=== PATIENT | female | born 1965 | race Caucasian/White ===

== ENCOUNTER 2023-09-09 13:02 | Emergency (ER) | payer OTHER, SELFPAY ==
[2023-09-09 13:21] VITALS: BP 141/92; PULSE 135; RESP 18; TEMP 38.1; O2SAT 94; BMI 40.6
--- NOTE | 2023-09-09 13:21 | ED_ITS ---
HPI - Nausea/Vomiting/Diarrhea General Chief complaint: Nausea/Vomiting/Diarrhea Stated complaint: vomiting sob back pain headache Time Seen by Provider: 09/09/23 22:32 Source: patient Mode of arrival: ambulatory Limitations: no limitations History of Present Illness HPI Narrative: Patient otherwise healthy been Having nausea vomiting and diarrhea since 03:00 today. Patient had prior family get together yesterday night woke up and sleep with nausea vomiting and diarrhea since then not able to eat or drink any fluid responded to Zofran given triage able to drink some fluids last bowel movement was at noon time no recent antibiotic take no other family members sick no fever or chills Related Data Previous Rx's Medication Instructions Recorded ondansetron 4 mg disintegrating 4 mg PO Q6-8H PRN nausea and 09/10/23 tablet vomiting #10 tabs Allergies Allergy/AdvReac Type Severity Reaction Status Date / Time codeine Allergy Hives Verified 09/09/23 13:24 Penicillins Allergy Hives Verified 09/09/23 13:24 Sulfa (Sulfonamide Allergy Hives Verified 09/09/23 13:24 Antibiotics) Review of Systems 2 Review of Systems: Yes all other systems are reviewed and are negative [facility] Social History Social History Smoked in Last 30 Days: No Use of substances other than those prescribed or required for medical reasons: No Advance Directives: No Advance Directives Information Provided: No Physical Exam 2 Vital Signs: Vital Signs: Last Vital Signs Temp 97.8 F 09/10/23 01:30 Pulse 96 09/10/23 01:30 Resp 16 09/10/23 01:30 BP 137/74 09/10/23 01:30 Pulse Ox 97 09/10/23 01:30 O2 Del Method Room Air 09/10/23 01:30 BMI result Body Mass Index 40.6 Appearance: Alert. Oriented X3. No acute distress. Eyes: No pallor or icterus ENT: Pharynx normal. Oral Mucosa moist Neck: Normal inspection. Neck supple. CVS: Normal heart rate and rhythm. Pulses normal. Respiratory: No respiratory distress. Equal air entry bilateral, no wheezing/rales/rhonchi Abdomen: Soft, mild diffuse tenderness no rebound tenderness guarding Bowel sounds are present, no mass palpable, no CVA tenderness Skin: Skin warm and dry. Normal skin color. Normal skin turgor. Extremities: No lower extremity edema. No calf tenderness Neuro: Oriented X 3. No motor deficit. No sensory deficit.No cerebellar signs , cranial nerves II-XII intact Course Course Course Narrative: RME:?58 yo female hx diverticulitis here for eval of vomiting, diarrhea, and bilateral flank pain since 0300 this morning. no sick contacts. no otc meds prior to arrival. denies dysuria, hematuria, hematemesis. labs, serology ordered. Full HPI, ROS and PE to be performed by the primary ED provider. Medications Administered Discontinued Medications Generic Name Dose Route Start Last Admin Trade Name Freq PRN Reason Stop Dose Admin Acetaminophen 650 mg 09/09/23 13:28 09/09/23 20:22 Acetaminophen 325 Mg Tablet PO 09/09/23 13:29 650 mg ONCE ONE Administration Sodium Chloride 1,000 mls @ 999 mls/hr 09/09/23 22:52 09/10/23 00:07 Ns IV 09/09/23 23:52 Infused .Q1H1M ONE Infusion Ondansetron HCl 4 mg 09/09/23 13:28 09/09/23 20:23 Ondansetron Odt 4 Mg Tab.Rapdis TRANSLINGU 09/09/23 13:29 4 mg ONCE ONE Administration Ondansetron HCl 4 mg 09/09/23 22:52 09/09/23 23:08 Ondansetron Hcl 4 Mg/2 Ml Vial IVPUSH 09/09/23 22:53 4 mg ONCE ONE Administration Medical Decision Making Medical Decision Making [facility] Narrative: Patient with likely Clostridium perfringens infection feeling much better after IV hydration taking p.o. fluids discharge patient home Lab Data [facility] Lab Attestation statement: I reviewed the patient's lab results. 09/09/23 13:59 09/09/23 13:58 Labs: Lab Results 09/09/23 09/09/23 09/09/23 Range/Units 13:58 13:59 22:07 WBC 11.9 H (4.8-10.8) X10*3/uL RBC 5.25 (4.20-5.50) X10*6/uL Hgb 15.5 (12.0-16.0) g/dl Hct 44.7 (37.0-47.0) % MCV 85.1 (80.0-98.0) fL MCH 29.5 (27.0-33.0) pg MCHC 34.7 (31.0-35.0) g/dl RDW 14.2 (11.0-16.0) % Plt Count 301 (160-400) X10*3/uL MPV 8.9 L (9.4-12.3) fL Immature Gran % (Auto) 0.4 (0.0-0.4) % Neut % (Auto) 94.1 H (45-73) % Lymph % (Auto) 2.8 L (20-40) % Calvert % (Auto) 2.3 (2-11) % Eos % (Auto) 0.2 (0-4) % Baso % (Auto) 0.2 (0-2) % Lymph # (Auto) 0.3 L (1.2-4.9) X10*3/uL [place]vert # (Auto) 0.3 (0.1-1.2) X10*3/uL Eos # (Auto) 0.0 (0.0-0.4) X10*3/uL Baso # (Auto) 0.0 (0.0-0.2) X10*3/uL Abs Immat Gran (auto) 0.05 H (0.00-0.03) X10*3/uL Absolute Neuts (auto) 11.2 H (2.0-8.3) x10*3/uL Absolute Nucleated RBC 0.000 (0.0-0.012) X10*3/uL Nucleated RBC % (auto) 0.0 (0.0-0.2) /100WBC Smear Tech's Comments VERIFIED Sodium 141 (135-145) mmol/L Potassium 3.5 (3.3-5.1) mmol/L Chloride 103 (96-108) mmol/L Carbon Dioxide 27 (22-29) mmol/L Anion Gap 15 (12-20) BUN 17 H (9-16) mg/dL Creatinine 0.96 (0.5-1.4) mg/dL Estim Creat Clear Calc 75.5 Estimated GFR > 60 Random Glucose 166 H (60-115) mg/dL Calcium 9.5 (8.4-10.2) mg/dL Magnesium 1.8 (1.6-2.6) mg/dL Lipase 7 L (8-78) U/L Urine Color Dark Yellow Urine Appearance Cloudy Urine pH 5.0 (5.0-9.0) Ur Specific Lorraine >= 1.030 H (1.005-1.025) Urine Protein 30 (1+) H (Neg-Trace) mg/dL Urine Glucose (UA) Negative (Negative) mg/dL Urine Ketones Trace (Negative) mg/dL Urine Blood Trace H (Negative) Urine Nitrite Negative (Negative) Ur Leukocyte Esterase Small (1+) H (Negative) Urine RBC 3-5 H (0-2) /HPF Urine WBC 6-10 (0-5) /HPF Ur Squamous Epith Cells 11-20 (0-2) /HPF Urine Bacteria 4+ (None Seen) Hyaline Casts >20 (0-2) /LPF Influenza Type A (PCR) NEGATIVE (Negative) Influenza Type B (PCR) NEGATIVE (Negative) RSV RNA Qual (PCR) NEGATIVE (Negative) SARS-CoV-2 RNA (RT-PCR) NEGATIVE (Negative) Discharge Plan Discharge Clinical Impression: Gastroenteritis Patient Disposition: Home, Self-Care Instructions: Gastroenteritis (ED) Additional Instructions: Likely you have symptoms from Clostridium perfringens infection which is self- limited Drink plenty of fluids Medicine for nausea as prescribed Follow with PCP if not better Prescriptions: New ondansetron 4 mg tablet,disintegrating 4 mg PO Q6-8H PRN (Reason: nausea and vomiting) Qty: 10 0RF Interventions: ED Discharge Assessment Last Done: 09/10/23 01:54 Discharge Date/Time: 09/10/23 02:02
--- NOTE | 2023-09-09 13:25 | ECG_ITS ---
Test Reason : tachycardia Blood Pressure : / mmHG Vent. Rate : 128 BPM Atrial Rate : 128 BPM P-R Int : 154 ms QRS Dur : 080 ms QT Int : 306 ms P-R-T Axes : 052 010 055 degrees QTc Int : 446 ms Sinus tachycardia Possible Left atrial enlargement Borderline ECG No previous ECGs available Referred By: Chapis Munoz Electronically Signed By:ANITA SERRANO
[2023-09-09 14:06] LABS: Basophils Percent Auto 0.2 % (0-2); Eosinophils Percent Auto 0.2 % (0-4); Hematocrit 44.7 % (37.0-47.0); Hemoglobin 15.5 g/dl (12.0-16.0); Imm Gran Abs Auto 0.05 X10*3/uL (0.00-0.03); Imm Gran Pct Auto 0.4 % (0.0-0.4); Lymphocytes Absolute Auto 0.3 X10*3/uL (1.2-4.9); Lymphocytes Percent Auto 2.8 % (20-40); MANUAL DIFF FLAG SCAN; Mean Corpuscular HGB Conc 34.7 g/dl (31.0-35.0); Mean Corpuscular Hemoglobin 29.5 pg (27.0-33.0); Mean Corpuscular Volume 85.1 fL (80.0-98.0); Mean Platelet Volume 8.9 fL (9.4-12.3); Monocytes Absolute Auto 0.3 X10*3/uL (0.1-1.2); Monocytes Percent Auto 2.3 % (2-11); Neutrophils Absolute Auto 11.2 x10*3/uL (2.0-8.3); Neutrophils Percent Auto 94.1 % (45-73); Platelet Count 301 X10*3/uL (160-400); Red Blood Count 5.25 X10*6/uL (4.20-5.50); Red Cell Distribution Width 14.2 % (11.0-16.0); SCAN SMEAR FLAG 1; White Blood Count 11.9 X10*3/uL (4.8-10.8)
[2023-09-09 14:17] LABS: Anion Gap 15 (12-20); Blood Urea Nitrogen 17 mg/dL (9-16); Calcium 9.5 mg/dL (8.4-10.2); Carbon Dioxide 27 mmol/L (22-29); Chloride 103 mmol/L (96-108); Creatinine Clr Calc Pharmacy 75.5; Estimated Glomerular Filt Rate > 60; Glucose Random 166 mg/dL (60-115); Lipase 7 U/L (8-78); Magnesium 1.8 mg/dL (1.6-2.6); Potassium 3.5 mmol/L (3.3-5.1); Sodium 141 mmol/L (135-145)
[2023-09-09 14:26] LABS: SLIDE REVIEW VERIFIED
[2023-09-09 14:43] LABS: Influenza A PCR NEGATIVE (Negative); Influenza B PCR NEGATIVE (Negative); Resp Syncy Virus RNA Qual PCR NEGATIVE (Negative); SARS COV2 PCR INHOUSE NEGATIVE (Negative)
[2023-09-09 20:18] VITALS: BP 143/105; PULSE 117; RESP 20; TEMP 37.2; O2SAT 96
[2023-09-09] MEDS: Acetaminophen 325 MG TABLET 650 MG PO (20:22)
[2023-09-09] MEDS: Ondansetron ODT 4 MG TAB.RAPDIS TRANSLINGU (20:23)
[2023-09-09 22:16] LABS: Appearance Urine Cloudy; Color Urine Dark Yellow; Glucose Urine UA Negative (Negative); Leukocyte Esterase Urine Small (1+) (Negative); Nitrite Urine Negative (Negative); Specific Gravity - Urine >= 1.030 (1.005-1.025); UMIC TRIGGER UACC YES; Urine Blood Trace (Negative); Urine Ketones Trace mg/dL (Negative); Urine Protein 30 (1+) mg/dL (Neg-Trace)
[2023-09-09 22:26] LABS: Bacteria Urine 4+ (None Seen); Hyaline Casts Urine >20 /LPF (0-2); UACC Culture Trigger YES
[2023-09-09 22:44] VITALS: BP 112/68; PULSE 90; RESP 16; TEMP 36.9; O2SAT 96
--- NOTE | 2023-09-09 23:04 | MHC.EDTECH ---
This pct just assumed care of Patient ,vitals taken and Pillow given .
[2023-09-09 23:08] VITALS: TEMP 36.9
[2023-09-09] MEDS: 0.9 % Sodium Chloride 1,000 ML 999 ML IV (23:08)
[2023-09-09] MEDS: ondansetron HCL 4 MG/2 ML VIAL IVPUSH (23:08)
--- NOTE | 2023-09-09 23:23 | PC.NURSE ---
assumed care of pt [id number]. vss. afebrile. pt does not meet sepsis criteria at this time. ivf infusing. nad. call rosario within reach.
[2023-09-10 01:30] VITALS: BP 137/74; PULSE 96; RESP 16; TEMP 36.6; O2SAT 97
--- NOTE | 2023-09-10 01:46 | MHC.EDTECH ---
PATIENT WAS GIVEN PO CHALLENGE AND TOLERATED WELL ,PROVIDER AWARE .
== END 2023-09-10 02:02 | disposition home or self-care (01) ==
PROVIDERS: Physician Assistant Medical; Emergency Provider Internal Medicine; PCP Nurse Practitioner
DX: K52.9 Noninfective gastroenteritis and colitis, unspecified (principal); Z11.52 Encounter for screening for COVID-19; Z20.828 Contact with and (suspected) exposure to other viral communicable diseases; Z88.0 Allergy status to penicillin; Z88.2 Allergy status to sulfonamides; Z88.5 Allergy status to narcotic agent
CPT/HCPCS: 0241U; 80048; 81001; 83690; 83735; 85025; 87086; 93005; 96361; 96374; 99284; 99285; J2405

== ENCOUNTER → 2023-09-09 13:25 | Outpatient (BNV) | payer SELFPAY | PROVIDERS: Visit Provider Internal Medicine | DX: R00.0 Tachycardia, unspecified (principal) | CPT/HCPCS: 93010 ==